=== PATIENT | female | born 1995 | race Caucasian/White ===

== ENCOUNTER 2016-08-03 21:46 | Emergency (ER) | payer OTHER ==
[~2016-08-03] VITALS: Ht 160 cm; Wt 61.4 kg
[2016-08-03] MEDS ORDERED: PREN1TAB37 PO (21:56)
[2016-08-03] MEDS ORDERED: PROPARACAINE HCL 0.5% 15 ML OPHTHALMIC SOLUTION OS ONE (22:30)
[2016-08-03] MEDS ORDERED: SODIUM CHLORIDE 0.9% 1,000 ML IV ONE (22:45)
[2016-08-03 23:19] VITALS: BP 125/72
[2016-08-03] MEDS ORDERED: PERTUSS(ACELL),DIPH,TET VAC/PF 0.5 ML VIAL IM ONE (23:30)
== END 2016-08-03 23:40 | disposition home or self-care (01) ==
LOC: EMS 21:48
DX: H15.89 Other disorders of sclera (principal)
CPT/HCPCS: 90471; 90715; 99283; J7030; 99284